=== PATIENT | male | born 1985 | race Caucasian/White ===

== ENCOUNTER 2016-11-08 12:58 | Emergency (ER) | payer SELFPAY ==
[2016-11-08 13:09] VITALS: BP 133/73
--- NOTE | 2016-11-08 13:17 | ER Document Report ---
HPI - HPI Patient complains to provider of: sore throat Pain Level: Denies Context: 31 yo male with sore throat x 3 days. Associated Symptoms: Fever, Headache, Sore throat. denies: Nonproductive cough , Shortness of breath Exacerbated by: Food, Other - swallowing, talking Relieved by: Denies Similar symptoms previously: Yes Recently seen / treated by doctor: No - ROS Systems Reviewed and Negative: Yes All other systems reviewed and negative - DERM Skin Color: Normal Past Medical History - General Information source: Patient - Social History Smoking Status: Never Smoker Frequency of alcohol use: Occasional Lives with: Family Family History: Reviewed & Not Pertinent Patient has suicidal ideation: No Patient has homicidal ideation: No Renal/ Medical History: Denies: Hx Peritoneal Dialysis - Immunizations Hx Diphtheria, Pertussis, Tetanus Vaccination: - unkown Vertical Provider Document - CONSTITUTIONAL Agree With Documented VS: Yes Exam Limitations: No Limitations General Appearance: WD/WN, No Apparent Distress - INFECTION CONTROL TRAVEL OUTSIDE OF THE [place] IN LAST 30 DAYS: No - HEENT HEENT: Atraumatic, PERRLA, Pharyngeal Exudate, Pharyngeal Tenderness, Pharyngeal Erythema - NECK Neck: Normal Inspection, Supple - RESPIRATORY Respiratory: Breath Sounds Normal, No Respiratory Distress O2 Sat by Pulse Oximetry: 98 - CARDIOVASCULAR Cardiovascular: Regular Rate, Regular Rhythm - NEURO Level of Consciousness: Awake, Alert, Appropriate - DERM Integumentary: Warm, Dry Course - Vital Signs Vital signs: Temp Pulse Resp BP Pulse Ox 98.4 F 73 18 133/73 H 98 11/08/16 12:59 11/08/16 12:59 11/08/16 12:59 11/08/16 12:59 11/08/16 12:59 Discharge - Discharge Clinical Impression: Sore throat Condition: Stable Disposition: HOME, SELF-CARE Instructions: Strep Throat (OM), Penicillin V K ([facility]) Additional Instructions: Take antibiotics as prescribed lozenges salt water gargles new toothbrush in 2 days Prescriptions: Penicillin V Potassium [Penicillin Vk 500 mg Tablet] 500 mg PO BID #20 tablet Forms: Return to Work
== END 2016-11-08 13:20 | disposition home or self-care (01) ==
LOC: ER 12:58
DX: J02.9 Acute pharyngitis, unspecified (principal); R50.9 Fever, unspecified; R51 Headache
CPT/HCPCS: 99282

== ENCOUNTER 2018-10-15 09:31 | Observation (INO) | payer SELFPAY ==
[2018-10-15] MEDS ORDERED: IBUPROFEN 800 MG TABLET PO ONE (10:02)
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
[2018-10-15] MEDS ORDERED: ONDANSETRON HCL INJ/PF 4 MG/2 ML SDV IV ONE (10:25)
[2018-10-15] MEDS ORDERED: CEFAZOLIN 1 GM/D5W RTU 1 GM/50 ML RTUPB IV ONE (10:25)
[2018-10-15] MEDS ORDERED: FENTANYL CITRATE INJ/PF 100 MCG/2 ML AMPUL IV ONE (10:25)
[2018-10-15] MEDS ORDERED: NORMAL SALINE 1000 ML 1,000 ML IV ONE (10:26)
[2018-10-15 10:42] LABS: ABSOLUTE BASOPHILS # (AUTO) 0.1 10^3/uL (0.0-0.2); ABSOLUTE EOSINOPHILS # (AUTO) 0.1 10^3/uL (0.0-0.6); ABSOLUTE LYMPHOCYTES (AUTO) 1.5 10^3/uL (0.5-4.7); ABSOLUTE MONOCYTES (AUTO) 1.1 10^3/uL (0.1-1.4); ABSOLUTE NEUT (AUTO) 15.4 10^3/uL (1.7-8.2); BASOPHILS % (AUTO) 0.4 % (0-2); EOSINOPHILS % (AUTO) 0.6 % (0-6); HEMOGLOBIN 15.2 g/dL (13.5-17.0); MEAN CORPUSCULAR HGB CONC 33.8 g/dL (32.0-36.0); MEAN CORPUSCULAR VOLUME 86 fl (80-97); MONOCYTES % (AUTO) 6.1 % (3-13); PLATELET COUNT 297 10^3/uL (150-450); RED BLOOD COUNT 5.26 10^6/uL (4.35-5.55); RED CELL DISTRIBUTION WIDTH 13.5 % (11.5-14.0); SEGMENTED NEUTROPHILS % (AUTO) 84.9 % (42-78); TOTAL CELLS COUNTED % (AUTO) 100 %; WHITE BLOOD COUNT 18.1 10^3/uL (4.0-10.5)
[2018-10-15] MEDS ORDERED: LIDOCAINE 2% INJ-PF (100 MG/5 ML) SYRINGE ONE (10:47)
[2018-10-15] MEDS ORDERED: MIDAZOLAM 2 MG/2 ML INJ ONE ×2 (10:48→11:12)
[2018-10-15] MEDS ORDERED: LIDOCAINE 1%/EPINEPHRINE INJ 20 ML VIAL ONE (10:48)
[2018-10-15] MEDS ORDERED: FENTANYL CITRATE INJ/PF 100 MCG/2 ML AMPUL ONE ×2 (10:59→11:13)
[2018-10-15 11:04] LABS: ALANINE AMINOTRANSFERASE 36 U/L (21-72); ALBUMIN 4.7 g/dL (3.5-5.0); ALKALINE PHOSPHATASE 105 U/L (38-126); ANION GAP 8 (5-19); ASPARTATE AMINO TRANSFERASE 34 U/L (17-59); BILIRUBIN,DIRECT 0.2 mg/dL (0.0-0.4); BILIRUBIN,TOTAL 0.4 mg/dL (0.2-1.3); BLOOD UREA NITROGEN 16 mg/dL (7-20); CALCIUM 10.2 mg/dL (8.4-10.2); CARBON DIOXIDE 30 mmol/L (22-30); CHLORIDE 101 mmol/L (98-107); GLUCOSE 86 mg/dL (75-110); POTASSIUM 4.4 mmol/L (3.6-5.0); SODIUM 138.8 mmol/L (137-145); TOTAL PROTEIN 7.5 g/dL (6.3-8.2)
[2018-10-15] MEDS ORDERED: LIDOCAINE 1% INJ-PF (10 MG/ML) 30 ML SDV ONE (11:10)
[2018-10-15] MEDS ORDERED: KETOROLAC TROMETHAMINE 10 MG TABLET PO PRN (11:44)
--- NOTE | 2018-10-15 11:47 | RADIOLOGY REPORT (SQ) ---
EXAM DESCRIPTION: CHEST SINGLE VIEW COMPLETED DATE/TIME: 10/15/2018 11:22 am REASON FOR STUDY: CHEST TUBE PLACEMENT COMPARISON: Two-view chest 10/15/2018, 1017 hours EXAM PARAMETERS: NUMBER OF VIEWS: One view. TECHNIQUE: Single frontal radiographic view of the chest acquired. RADIATION DOSE: NA LIMITATIONS: None. FINDINGS: LUNGS AND PLEURA: Since the prior two-view chest, a left-sided large bore chest tube has b een placed. No pneumothorax. Trace left chest wall air. No left lung consolidation or pleural effu vikki. Right hemithorax unremarkable. MEDIASTINUM AND HILAR STRUCTURES: No masses. Contour normal. HEART AND VASCULAR STRUCTURES: Heart normal in size. Normal vasculature. BONES: No acute findings. HARDWARE: Left large bore chest tube in place in good positioning OTHER: No other significant finding. IMPRESSION: Left large bore chest tube in place in good positioning. No left pneumothorax or pleural effusion. Decrease in left chest wall air. TECHNICAL DOCUMENTATION: JOB ID: [id number] [employer]- All Rights Reserved Reading location - IP/workstation name: [email or web address]
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
[2018-10-15] MEDS: KETOROLAC TROMETHAMINE INJ/PF 30 MG/1 ML SDV IV PRN ×2 (13:23→20:54)
--- NOTE | 2018-10-15 13:29 | EKG REPORT ---
SEVERITY:- ABNORMAL ECG - SINUS RHYTHM ST ELEVATION SUGGESTS PERICARDITIS : Confirmed by: Elliot Mitchell MD 15-Oct-2018 13:28:06
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
[2018-10-15] MEDS ORDERED: OXYCODONE-ACETAMINOPHEN 5-325 MG TABLET PO PRN (15:39)
[2018-10-15] MEDS: OXYCODONE-ACETAMINOPHEN 5-325 MG TABLET PO PRN (16:12)
[2018-10-15] MEDS: DOCUSATE SODIUM 100 MG CAPSULE PO SCH (17:20)
[2018-10-15 17:54] LABS: AMORPHOUS SEDIMENT,URINE TRACE /HPF; APPEARANCE,URINE TURBID; BILIRUBIN,URINE NEGATIVE (NEGATIVE); COLOR,URINE YELLOW; GLUCOSE, URINE NEGATIVE (NEGATIVE); KETONES,URINE NEGATIVE (NEGATIVE); LEUKOCYTE ESTERASE,URINE NEGATIVE (NEGATIVE); NITRITE,URINE NEGATIVE (NEGATIVE); PROTEIN,URINE 30 mg/dL (NEGATIVE); URINE SPECIFIC GRAVITY 1.026; UROBILINOGEN,URINE NEGATIVE mg/dL (<2.0)
[2018-10-16] MEDS ORDERED: ZOLPIDEM TARTRATE 5 MG TABLET PO PRN (00:20)
[2018-10-16] MEDS: OXYCODONE-ACETAMINOPHEN 5-325 MG TABLET PO PRN ×3 (00:25→13:54)
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
[2018-10-16] MEDS: DOCUSATE SODIUM 100 MG CAPSULE PO SCH (09:18)
[2018-10-16 12:49] VITALS: BP 123/70
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
--- NOTE | 2018-10-16 18:03 | RADIOLOGY REPORT (SQ) ---
EXAM DESCRIPTION: CHEST 2 VIEWS COMPLETED DATE/TIME: 10/16/2018 2:05 pm REASON FOR STUDY: chest tube removal COMPARISON: Earlier exam same date TECHNIQUE: Frontal and lateral radiographic views of the chest acquired. NUMBER OF VIEWS: Two view. LIMITATIONS: None. FINDINGS: LUNGS AND PLEURA: No pneumothorax. No consolidation or pleural effusion. MEDIASTINUM AND HILAR STRUCTURES: Stable. HEART AND VASCULAR STRUCTURES: Stable. BONES: No acute findings. HARDWARE: None in the chest. OTHER: Subcutaneous gas in the left chest wall from prior chest tube. IMPRESSION: The previously seen small left apical pneumothorax has resolved. TECHNICAL DOCUMENTATION: JOB ID: [id number] [employer]- All Rights Reserved Reading location - IP/workstation name: [email or web address]
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
== END 2018-10-16 16:34 | disposition home or self-care (01) ==
LOC: ER 09:31 → EH 12:15 → 4S 13:05
PROVIDERS: ADMIT Surgery; ATTEND Surgery
PROC: 0W9B00Z Drainage of Left Pleural Cavity with Drainage Device, Open Approach (ICD-10-PCS; principal; 2018-10-15)
PROC: 0KQ Muscles, Repair (ICD-10-PCS; 2018-10-15)
DX: S21.412A Laceration without foreign body of left back wall of thorax with penetration into thoracic cavity, initial encounter (principal); S27.0XXA Traumatic pneumothorax, initial encounter; W26.0XXA Contact with knife, initial encounter; R45.1 Restlessness and agitation; M79.603 Pain in arm, unspecified
CPT/HCPCS: 93005; 99291; 96375; 96365; 96366; 36415; 85025; 80053; 81001; 71046 ×2; 71045; 94799 ×2; 93010; 32551; 13101; J0690; J3010; J1885; J2405; J7030; G0378